=== PATIENT | male | born 1955 | race Caucasian/White ===

== ENCOUNTER → 2023-04-04 | Outpatient (CLI) | payer MEDICARE ==
[~2023-04-04] MED LIST: COLACE100 MG PO; FERROUS SULFATE65 M1 PO; Lovenox30 MG/0.3 SC; MOM30 ML PO; PERCOCET 325 MG1 TA3 PO; PRILOSEC20 M1 PO; PROZAC20 MG PO
== END | disposition home or self-care (01) ==
LOC: RESCLI 09:54
PROVIDERS: ATTEND Family Medicine
DX: E11.9 Type 2 diabetes mellitus without complications (principal); I10 Essential (primary) hypertension; E78.5 Hyperlipidemia, unspecified; F32.9 Major depressive disorder, single episode, unspecified; Z98.890 Other specified postprocedural states; Z79.899 Other long term (current) drug therapy; Z88.8 Allergy status to other drugs, medicaments and biological substances; Z79.84 Long term (current) use of oral hypoglycemic drugs